=== PATIENT | male | born 1995 | race Caucasian/White ===

== ENCOUNTER 2021-06-23 19:16 | Emergency (ER) | payer OTHER ==
[~2021-06-23] VITALS: Ht 193 cm; Wt 113.4 kg
[2021-06-23 19:20] VITALS: BP 151/106
[2021-06-23] MEDS: IBUPROFEN 600 MG TAB PO ONE (20:10)
--- NOTE | 2021-06-23 20:10 | NUR ---
PATIENT BIB [facility]. PATIENT EXAMINED BY DR. GARCIA. PATIENT MEDICALLY CLEARED AND RELEASED IN CUSTODY IN STABLE CONDITION. ORIGINAL PRE-BOOK FORM GIVEN TO OFFICER SUHAIL #[id number].
== END 2021-06-23 20:10 ==
LOC: MED 19:16
DX: Z02.89 Encounter for other administrative examinations (principal); K08.89 Other specified disorders of teeth and supporting structures
CPT/HCPCS: 99283